=== PATIENT | female | born 1990 | race Caucasian/White ===

== ENCOUNTER 2019-06-23 00:06 | Emergency (ER) | payer OTHER ==
[~2019-06-23] VITALS: Ht 170.2 cm; Wt 65.8 kg
[2019-06-23 00:15] VITALS: BP 135/81; Ht 170.2 cm; Wt 65.8 kg
== END 2019-06-23 00:50 | disposition other institution (70) ==
LOC: ED 00:06
DX: Z02.89 Encounter for other administrative examinations (principal)